=== PATIENT | male | born 1945 | race Caucasian/White ===

== ENCOUNTER 2018-01-23 11:50 | Day surgery (SDC) | payer MEDICARE, BC ==
[~2018-01-23] VITALS: Ht 170.2 cm; Wt 77.1 kg
[~2018-01-23 11:50] MED LIST: COZAAR50 MG PO; FLOMAX0.4 MG PO; LIVALO4 MG PO; MOBIC7.5 MG PO; NORVASC10 MG PO; OMEPRAZOLE20 M1 PO; STOOL SOFTENER100 M1 PO; TYLENOL W/CODEI1 TAB PO; ZOLOFT100 MG PO
[2018-01-23 12:12] LABS: BASOPHILS 0.3 % (0-2); HEMATOCRIT 37.5 % (42.0-54.0); HEMOGLOBIN 13.7 g/dL (13.5-17.5); IMMATURE GRANULOCYTES 0.1 % (0-5); MCH 33.7 pg (26.0-34.0); MCHC 36.5 g/dL (31.0-37.0); MCV 92.4 fL (80.0-100.0); MEAN PLATELET VOLUME 9.3 fL (7.4-10.4); MONOCYTES 8.6 % (2-11); PLATELET COUNT 204 10x3/uL (130-400); RBC 4.06 10x6/uL (4.20-6.10); RDW 12.6 % (11.5-14.5); WBC 7.1 10x3/uL (4.8-10.8)
[2018-01-23 13:48] VITALS: BP 113/76; Ht 170.2 cm; Wt 77.1 kg
[2018-01-24] MEDS ORDERED: NORCO 7.5/325 T1 TA1 PO (12:48)
[2018-01-24] MEDS ORDERED: VIBRAMYCIN 100100 MG PO (12:48)
[2018-03-01] MEDS ORDERED: TYLENOL W/CODEI1 TAB (17:28)
[2018-03-01] MEDS ORDERED: BACTRIM 400-801 TAB PO (17:29)
== END 2018-01-23 16:30 | disposition home or self-care (01) ==
LOC: D.OPS 11:50 → D.PAN 14:00 → D.OPS 14:00 → D.PAN 14:15 → D.OPS 16:30
PROVIDERS: Anesthesiology
DX: T14.8XXA Other injury of unspecified body region, initial encounter (principal); Z53.9 Procedure and treatment not carried out, unspecified reason; Z01.812 Encounter for preprocedural laboratory examination

== ENCOUNTER 2018-01-24 10:36 | Day surgery (SDC) | payer MEDICARE, BC ==
[~2018-01-24] VITALS: Ht 170.2 cm; Wt 77.3 kg
--- NOTE | ~2018-01-24 | OP ---
PATIENT NAME: AKSHAT MARIN MEDICAL RECORD: [id number] :47 LOCATION:[facility] ADMISSION DATE: SURGEON: HENRI VARGHESE DO DATE OF OPERATION: 01/24/2018 PROCEDURE PERFORMED: Right elbow incision, debridement and closure with wound VAC application and Amniox application. PREOPERATIVE DIAGNOSIS: Right elbow wound dehiscence. POSTOPERATIVE DIAGNOSIS: Right elbow wound dehiscence. INDICATIONS: Mr. Marin is a left hand dominant male who fell some weeks ago and sustained a triceps rupture. He was seen by another treating physician and had the triceps repaired. Shortly thereafter, he fell again and the wound opened up. He had I&D'd and closed and then he fell again and it opened up again. He was in packing at that point and asked for my assistance, asked for me to look at it. He had about a 5 x 2 cm opening horizontally back of the upper arm right at the elbow and I informed him, I would try to close it and that he will be in a splint. We also cultured the wound. The patient was understanding the risks and benefits of the procedure and signed the consent. SURGEON: Henri Varghese DO DESCRIPTION OF PROCEDURE: The patient was taken to the operative suite, laid in the left lateral decubitus position with the right arm up. The right arm was prepped and draped in sterile fashion with Betadine to the open wound. After it was prepped and draped, a timeout was performed. Everyone was in agreement of correct side, site, patient, and procedure. The procedure then began using a curette with the granulation tissue that was in the wound was roughened up and then 1500 mL of saline was used in the power saturator to wash out the wound. Prior to this, cultures were taken. Once the wound washed out, the edges of the wound were removed in order to create a bleeding surface at the other edges. The skin was then mobilized also doing an undermining technique. Once this was completed, a 2 x 3 cm sheet of Amniox was placed over the exposed tricep tendon in order to prevent adhesions and to give a good wound healing bed. This was tacked down with 3-0 Monocryl. Then, the arm was extended at the elbow and the wound was closed with 2-0 Prolene in a Donati type stitch and vertical mattress stitches and then in between there, 3-0 Monocryl was used in horizontal mattress stitches to pull the wound together. Then, a Prevena wound VAC was placed on the wound itself and sealed. The arm was then wrapped with Webril and a splint was put on the anterior arm to keep the arm in extension and an Nicho wrap was used over that to hold the splint in place. BLOOD LOSS: Minimal. COMPLICATIONS: None. TRANSINT:[id number] Voice Confirmation ID: [id number] DOCUMENT ID: [id number] OPERATIVE REPORT [id number] AKSHAT MARIN,HENRI Larry DO at 1604 CC: [id number] DICTATION DATE: 01/24/18 1253 FOUNDATION DIRECTOR: 01/24/18 1424 [facility] 01/24/18 [facility] [address] [place] [address]
[2018-01-24 10:41] VITALS: BP 119/71; Ht 170.2 cm; Wt 77.3 kg
[2018-01-24] MEDS ORDERED: VIBRAMYCIN 100100 MG PO (12:48)
[2018-01-24] MEDS ORDERED: NORCO 7.5/325 T1 TA1 PO (12:48)
[2018-03-01] MEDS ORDERED: TYLENOL W/CODEI1 TAB (17:28)
[2018-03-01] MEDS ORDERED: BACTRIM 400-801 TAB PO (17:29)
== END 2018-01-24 15:15 | disposition home or self-care (01) ==
LOC: D.OPS 10:36
DX: T81.32XA Disruption of internal operation (surgical) wound, not elsewhere classified, initial encounter (principal); Z01.812 Encounter for preprocedural laboratory examination

== ENCOUNTER → 2018-01-24 22:00 | Day surgery (SDC) | payer MEDICARE, BC ==
[2018-01-24 10:41] VITALS: BMI 26.7
[~2018-01-24 22:00] MED LIST changes: +BACTRIM 400-801 TAB PO; +NORCO 7.5/325 T1 TA1 PO; +TYLENOL W/CODEI1 TAB; +VIBRAMYCIN 100100 MG PO
== END | disposition home or self-care (01) ==
LOC: D.OPS 08:40
DX: T81.32XA Disruption of internal operation (surgical) wound, not elsewhere classified, initial encounter (principal); Z01.812 Encounter for preprocedural laboratory examination

== ENCOUNTER → 2018-02-14 13:09 | Outpatient (CLI) | payer MEDICARE, BC ==
[2018-01-24 10:41] VITALS: BMI 26.7
== END | disposition home or self-care (01) ==
LOC: D.LABREF 13:09
DX: M25.521 Pain in right elbow (principal)

== ENCOUNTER 2018-03-02 11:43 | Outpatient (CLI) | payer MEDICARE, BC ==
[~2018-03-02] VITALS: Ht 170.2 cm; Wt 78.0 kg
[2018-03-02 12:18] LABS: BASOPHILS 0 % (0-2); EOSINOPHILS 0.2 % (0-7); HEMATOCRIT 38.6 % (42.0-54.0); IMMATURE GRANULOCYTES 0.2 % (0-5); LYMPHOCYTES 16.5 % (15-50); MCH 33.8 pg (26.0-34.0); MCHC 36.3 g/dL (31.0-37.0); MCV 93.2 fL (80.0-100.0); MEAN PLATELET VOLUME 10.1 fL (7.4-10.4); MONOCYTES 6.4 % (2-11); NEUTROPHILS 76.7 % (40-80); PLATELET COUNT 217 10x3/uL (130-400); RBC 4.14 10x6/uL (4.20-6.10); RDW 12.9 % (11.5-14.5); WBC 10.5 10x3/uL (4.8-10.8)
[2018-03-02 12:24] LABS: CARBON DIOXIDE 23.6 mmol/L (21.0-32.0); CREATININE - SERUM 1.3 mg/dL (0.6-1.3); POTASSIUM - SERUM 4.6 mmol/L (3.5-5.1)
[2018-03-02 14:00] VITALS: BP 128/79; Ht 170.2 cm; Wt 78.0 kg
== END 2018-03-02 16:54 | disposition home or self-care (01) ==
LOC: D.OPS 11:43 → EDSTATUS 14:00 → D.OPS 16:54
PROVIDERS: Anesthesiology
DX: T14.8XXA Other injury of unspecified body region, initial encounter (principal); Z01.810 Encounter for preprocedural cardiovascular examination; Z01.811 Encounter for preprocedural respiratory examination; Z01.812 Encounter for preprocedural laboratory examination; Z53.9 Procedure and treatment not carried out, unspecified reason

== ENCOUNTER 2018-03-06 05:25 | Day surgery (SDC) | payer MEDICARE, BC ==
[~2018-03-06] VITALS: Ht 170.2 cm; Wt 78.0 kg
--- NOTE | ~2018-03-06 | OP ---
PATIENT NAME: AKSHAT MARIN MEDICAL RECORD: [id number] :47 LOCATION:D.OPS ADMISSION DATE: SURGEON: FRANCISCO J VARGHESE DO DATE OF OPERATION: 03/06/2018 PROCEDURE PERFORMED: Right elbow incision, debridement with rotational flap closure, Amniox and Prevena application. PREOPERATIVE DIAGNOSIS: Right elbow open wound. POSTOPERATIVE DIAGNOSIS: Right elbow open wound. INDICATIONS: Mr. Marin is a 72-year-old male who had a triceps repair sometime ago, fell and split that open twice from the outside facility and then I did surgery on him to close the wound defect and closed nicely and then approximately 2 weeks after it healed, he develops another wound proximal to that and it opened up. It did not seem to be getting smaller. After watching it for a week or two, and decided to do a rotational flap to get it closed and I&D. He was okay with after knowing the risks and benefits of the procedure including infection, bleeding, damage to nerves and vessels, need for further surgery, and wound VAC application. He consented to the procedure. SURGEON: Francisco J Varghese DO DESCRIPTION OF PROCEDURE: The patient was taken to the operative suite, laid in the left lateral decubitus position with the right arm out. It was prepped and draped with Betadine and then a timeout was performed. Everyone was in agreement with the correct site, side, the patient. The patient received 2 grams Ancef preoperatively. Once he got 2 grams of Ancef and the timeout had been performed, the rotational flap was marked out. A triangular incision was cut around the open defect getting nice bleeding edges on all the edges and then a curvilinear incision was made laterally. This was on the posterior elbow to rotate the flap over. The flap was rotated over. Cultures had been taken as well. Once the flap was rotated over, it was sutured into place with 3-0 nylon and then the Amniox was sutured underneath it with 4-0 Monocryl, this had a nice closure. This was closed with horizontal mattresses and simple interrupted sutures. Then, the Prevena was placed on the wound and suction was holding. The wound was thoroughly irrigated prior to all this. The patient was awakened and taken to recovery in stable condition BLOOD LOSS: Minimal. COMPLICATIONS: None. TRANSINT:[id number] Voice Confirmation ID: [id number] DOCUMENT ID: [id number] FRANCISCO J VARGHESE DO at 1744 CC: [id number] DICTATION DATE: 03/06/18825 LEAD LEVEL DESIGNER: 03/06/18 0853 [facility] 03/06/18 [place] [id number] [place] [id number]
[2018-03-06 06:25] VITALS: BP 115/72; Ht 170.2 cm; Wt 78.0 kg
[2018-03-06] MEDS ORDERED: VIBRAMYCIN 100100 MG PO (07:18)
[2018-03-06] MEDS ORDERED: NORCO 7.5/325 T1 TA1 PO (07:18)
== END 2018-03-06 10:27 | disposition home or self-care (01) ==
LOC: D.OPS 05:25
DX: S51.001A Unspecified open wound of right elbow, initial encounter (principal); Z01.812 Encounter for preprocedural laboratory examination
CPT/HCPCS: 11042; 14020; C5271

== ENCOUNTER → 2018-04-05 12:18 | Outpatient (CLI) | payer MEDICARE, BC ==
[2018-03-06 06:25] VITALS: BMI 27.0
[2018-04-05 13:47] LABS: BASOPHILS 0.3 % (0-2); EOSINOPHILS 1.5 % (0-7); HEMATOCRIT 38.4 % (42.0-54.0); HEMOGLOBIN 13.9 g/dL (13.5-17.5); IMMATURE GRANULOCYTES 0.1 % (0-5); MCH 33.7 pg (26.0-34.0); MCHC 36.2 g/dL (31.0-37.0); MCV 93.2 fL (80.0-100.0); MEAN PLATELET VOLUME 10.2 fL (7.4-10.4); MONOCYTES 9.4 % (2-11); NEUTROPHILS 67.7 % (40-80); PLATELET COUNT 223 10x3/uL (130-400); RBC 4.12 10x6/uL (4.20-6.10); RDW 12.7 % (11.5-14.5); WBC 7.6 10x3/uL (4.8-10.8)
[2018-04-05 14:01] LABS: ALBUMIN 3.9 g/dL (3.4-5.0); ALKALINE PHOSPHATASE 127 U/L (46-116); ALT (SGPT) 24 U/L (10-68); BILIRUBIN - TOTAL 0.62 mg/dL (0.2-1.3); CALC OSMOLALITY 281 mosm/kg (275-300); CALCIUM 8.8 mg/dL (8.5-10.1); CARBON DIOXIDE 24.3 mmol/L (21.0-32.0); CHLORIDE - SERUM 104 mmol/L (98-107); CREATININE - SERUM 0.9 mg/dL (0.6-1.3); GLUCOSE 93 mg/dL (74-106); POTASSIUM - SERUM 4.2 mmol/L (3.5-5.1); PRE-ALBUMIN 23.2 mg/dL (18.0-35.7); PROTEIN - SERUM 7.3 g/dL (6.4-8.2); SODIUM 139 mmol/L (136-145); UREA NITROGEN 23 mg/dL (7-18); eGFR NON AFRICAN AMERICAN 88 mL/min (90-120)
== END | disposition home or self-care (01) ==
LOC: D.LABREF 12:18
PROVIDERS: Orthopaedic Surgery
DX: M25.521 Pain in right elbow (principal)

== ENCOUNTER → 2019-01-24 11:06 | Outpatient (CLI) | payer MEDICARE, BC ==
[2018-03-06 06:25] VITALS: BMI 27.0
[~2019-01-24 11:06] MED LIST changes: +CIPRO500 MG PO; +ELIQUIS2.5 MG PO; +MULTI-DAY VITAM1 TAB PO; +NIACIN500 MG PO; +OMEGA-3100 MG PO; +OXYCODONE HCL5 M1 PO; +VITAMIN D5000 UNIT PO
== END | disposition home or self-care (01) ==
LOC: D.LABREF 11:06
PROVIDERS: ATTEND Orthopaedic Surgery
DX: M17.12 Unilateral primary osteoarthritis, left knee (principal); Z11.8 Encounter for screening for other infectious and parasitic diseases

== ENCOUNTER 2019-01-25 16:26 | Inpatient (IN) | payer MEDICARE, BC ==
[~2019-01-25] VITALS: Ht 170.2 cm; Wt 77.1 kg
[~2019-01-25 16:26] MED LIST changes: -CIPRO500 MG PO; -ELIQUIS2.5 MG PO; -MULTI-DAY VITAM1 TAB PO; -NIACIN500 MG PO; -OMEGA-3100 MG PO; -OXYCODONE HCL5 M1 PO; -VITAMIN D5000 UNIT PO
[2019-01-30] MEDS ORDERED: TYLENOL W/CODEI1 TAB PO (10:37)
[2019-01-30] MEDS ORDERED: NIACIN500 MG PO (10:39)
[2019-01-30] MEDS ORDERED: OMEGA-3100 MG PO (10:40)
[2019-01-30] MEDS ORDERED: MULTI-DAY VITAM1 TAB PO (10:41)
[2019-01-30] MEDS ORDERED: VITAMIN D5000 UNIT PO (10:41)
[2019-01-30 11:11] LABS: BASOPHILS 0.3 % (0-2); EOSINOPHILS 3.8 % (0-7); HEMATOCRIT 38.2 % (42.0-54.0); HEMOGLOBIN 14.4 g/dL (13.5-17.5); LYMPHOCYTES 22.5 % (15-50); MCH 33.9 pg (26.0-34.0); MCHC 37.7 g/dL (31.0-37.0); MCV 89.9 fL (80.0-100.0); MEAN PLATELET VOLUME 9.6 fL (7.4-10.4); MONOCYTES 9.1 % (2-11); NEUTROPHILS 64.3 % (40-80); PLATELET COUNT 197 10x3/uL (130-400); RBC 4.25 10x6/uL (4.20-6.10); RDW 13.1 % (11.5-14.5)
[2019-01-30 11:18] LABS: ANION GAP 10.5 mmol/L (8-16); APTT 29.3 SECONDS (22.8-39.4); CALCIUM 8.8 mg/dL (8.5-10.1); CARBON DIOXIDE 27.6 mmol/L (21.0-32.0); CREATININE - SERUM 1.1 mg/dL (0.6-1.3); INR 1.16 (0.85-1.17); POTASSIUM - SERUM 4.1 mmol/L (3.5-5.1); PROTIME 14.3 SECONDS (11.6-15.0)
[2019-01-31 09:01] LABS: APPEARANCE CLEAR (CLEAR); BILIRUBIN NEGATIVE (NEGATIVE); COLOR YELLOW (YELLOW); GLUCOSE NEGATIVE (NEGATIVE); KETONE NEGATIVE (NEGATIVE); NITRITE NEGATIVE (NEGATIVE); PROTEIN NEGATIVE (NEGATIVE); SPECIFIC GRAVITY 1.015 (1.005-1.020); UROBILINOGEN NORMAL (NORMAL)
[2019-02-05] MEDS ORDERED: FLOMAX0.4 MG PO (07:29)
[2019-02-05 07:52] VITALS: BP 134/83; BMI 25.9
--- NOTE | 2019-02-05 11:21 | NUR ---
PLASMA BLADE SET TO 6/8 BOVIE PAD RIGHT HIP [id number] EXP 06/27/20 PREPPED FROM LEFT THIGH TO TOES CIRCUMFERENTIALLY WITH HIBICLENS AND ACOHOL AND THEN CHLORAPREP
--- NOTE | 2019-02-05 13:05 | NUR ---
DR WELLS AND STUDENT AT BEDSIDE FOR REBLOCK OF FEMORAL COMPONENT
--- NOTE | 2019-02-05 13:46 | NUR ---
PT DENIES NAUSEA
[2019-02-05 13:52] VITALS: BP 108/60
[2019-02-05 16:24] VITALS: BMI 26.7
[2019-02-05 21:37] VITALS: BP 119/70
[2019-02-06 00:49] VITALS: BP 101/68
--- NOTE | 2019-02-06 01:39 | NUR ---
PT RESTING IN BED. EYES CLOSED. NO SIGNS OF DISTRESS. BREATHING EVEN AND UNLABORED. IV SITE RT FA DRESSING CLEAN DRY AND INTACT. NO SIGNS OF INFECTION. SKIN CLEAN DRY AND INTACT. BOWEL SOUNDS ACTIVE. LT KNEE DRESSING CLEAN DRY AND INTACT. SCDS AND SARAH HOSE ON. WILL CONTINUE PLAN OF CARE. CALL LIGHT IN REACH. BED LOWERED AND LOCKED. BED RAILS UPX2.
[2019-02-06 05:16] VITALS: BP 114/68
[2019-02-06 06:49] LABS: HEMATOCRIT 32.5 % (42.0-54.0); HEMOGLOBIN 11.6 g/dL (13.5-17.5); MCHC 35.7 g/dL (31.0-37.0); MCV 92.3 fL (80.0-100.0); RBC 3.52 10x6/uL (4.20-6.10); RDW 13.5 % (11.5-14.5)
[2019-02-06 08:16] VITALS: BP 120/79
[2019-02-06 12:34] VITALS: BP 122/80
[2019-02-06 16:08] VITALS: BP 105/62
[2019-02-06 16:32] LABS: APPEARANCE CLEAR (CLEAR); BILIRUBIN NEGATIVE (NEGATIVE); COLOR YELLOW (YELLOW); GLUCOSE NEGATIVE (NEGATIVE); KETONE NEGATIVE (NEGATIVE); NITRITE NEGATIVE (NEGATIVE); PROTEIN NEGATIVE (NEGATIVE); UROBILINOGEN NORMAL (NORMAL)
[2019-02-06 22:07] VITALS: BP 155/79
--- NOTE | 2019-02-07 00:53 | NUR ---
PT IS ALERT ANDD ORENTED ABLE TO VOICE NEEDS AND WANTS TO STAFF. TEDS AND SCD IN PLACE.O2 AT 3L VIA N/C. IV TO RIGHT FR WITH 1/2 NS AT 50ML/HR. CPM PER ORDERS. CALL LIGHT AND WATER IN REACH BED LOW.
[2019-02-07 05:31] LABS: BASOPHILS 0.1 % (0-2); EOSINOPHILS 1.5 % (0-7); HEMATOCRIT 34.8 % (42.0-54.0); HEMOGLOBIN 12.7 g/dL (13.5-17.5); IMMATURE GRANULOCYTES 0.3 % (0-5); MCH 33.5 pg (26.0-34.0); MCHC 36.5 g/dL (31.0-37.0); MCV 91.8 fL (80.0-100.0); MEAN PLATELET VOLUME 9.9 fL (7.4-10.4); MONOCYTES 11.7 % (2-11); NEUTROPHILS 76.4 % (40-80); PLATELET COUNT 174 10x3/uL (130-400); RBC 3.79 10x6/uL (4.20-6.10); RDW 13.4 % (11.5-14.5)
[2019-02-07 05:45] VITALS: BP 145/84
[2019-02-07 06:09] LABS: ANION GAP 13.4 mmol/L (8-16); CALCIUM 9.1 mg/dL (8.5-10.1); CARBON DIOXIDE 26.3 mmol/L (21.0-32.0); CREATININE - SERUM 1.5 mg/dL (0.6-1.3); POTASSIUM - SERUM 4.7 mmol/L (3.5-5.1)
--- NOTE | 2019-02-07 08:00 | NUR ---
PT RESTING IN BED WITH BIPAP IN PLACE. NO ACUTE DISTRESS NOTED. REPORTS PAIN 4/10 AT THIS TIME. IV TO RIGHT FOREARM WITH 1/2 NS @ 50ML/HR INFUSING VIA PUMP. DRESSING TO LEFT LOWER EXTREMITY C/D/I. DENIES FURTHER NEEDS AT THIS TIME. CL WITHIN REACH. ENCOURAGED TO CALL WITH NEEDS. CONTINUE POC
[2019-02-07 09:39] VITALS: BP 151/86
[2019-02-07 12:56] VITALS: BP 138/78
--- NOTE | 2019-02-07 16:48 | OP ---
PATIENT NAME: AKSHAT MARIN MEDICAL RECORD: [id number] :47 LOCATION:D.MS [id number] ADMISSION DATE:02/05/19 SURGEON: HENRI VARGHESE DO DATE OF OPERATION: 02/05/2019 PROCEDURE PERFORMED: Left total knee arthroplasty. PREOPERATIVE DIAGNOSIS: Left knee osteoarthritis. POSTOPERATIVE DIAGNOSIS: Left knee osteoarthritis. INDICATIONS: Mr. Marin is a 73-year-old male who has had left knee arthritis for quite some time. He did have a tibia fracture sometime in the past. He did have some apex anterior deformity creating worse arthritis in his knee. He has been dealing with this for a long time. He has failed all nonoperative management. He was tired of dealing with it affecting his activities of daily living and was wanting something done surgically. I informed him of the risks including infection, bleeding, damage to nerves and vessels, fracture, need for further surgery, blood clots, and even . He was okay with that and signed the consent. SURGEON: Henri Varghese DO ACCOUNTING MACHINE SERVICER: I was assisted by Tyler Sutherland, advanced nurse practitioner, assisted with retraction and closure. DESCRIPTION OF PROCEDURE: He was taken to the operative suite and laid in supine position, given a general anesthetic and LMA was placed. He was given 2 grams of Ancef and 80 mg of gentamicin. The left lower extremity was then prepped and draped in sterile fashion. Timeout was performed, everyone was in agreement as to the correct side, site, patient and procedure. The incision was then marked out over the anterior knee and then covered in Ioban. Then, the incision was made with a 10 blade scalpel. Careful dissection was made down to the capsule. Medial parapatellar approach was made and any bleeding was coagulated with Aquamantys. Tourniquet was not used. The fat pad was partially removed and the patella was then milled down. The femoral canal was then entered and distal femur was cut. The tibia was then exposed and cut. The proximal tibia then removed and the knee was brought into extension. The menisci were removed from the medial and lateral aspects and then an extension block was put in. The extension block fit well. The pins were then pulled from the tibia from the cutting block. The knee was flexed up. The femur was measured to be a 67.5. The 4-in-1 cutting block was then put on, measured and did not notch and this was cut. The PS box was then cut out on the femur and the lugholes were drilled. The trial was then put on and the tibia was floated in with the poly. Rotation was then marked. The drill was used to drill holes for the patella through a guide. Then, the femur was removed, trial, as well as the tibia and poly. The tibia was then exposed and measured to be 75. We did a 75-80 mm stem on it. This was drilled and punched and cement was applied to the tibia and the implant and impacted into place. Once it was impacted in place, excess cement was removed. The femur was then impacted into place and a 10 poly was put in between them, brought to extension. The patella was then cemented in as well. The squeezer was then used and held the poly on while the cement hardened. Excess cement was removed from that and the tibia. Then, once this was drying, the knee was thoroughly irrigated with 3 liters of saline. The 12 poly fit better. We decided to go with a 12 poly. This was then inserted and OPERATIVE REPORT [id number] AKSHAT MARIN locked into place with a locking pin and ranged and there was good stability in extension and flexion. The vancomycin, tobramycin powder was then placed as well as Surgicel powder and then the knee was closed with #2 Ethibond in [id number] fashion. The capsule and then the skin with 2-0 Vicryl in inverted interrupted fashion and a ZipLine placed on the knee. Adaptic, 4 x 4s, ABD, Webril, Nicho wrap, SARAH hose stockinette was placed up to the knee. The patient was awakened and taken to recovery in stable condition. Blood loss was approximately 200 mL. Complications none. TRANSINT:[id number] Voice Confirmation ID: [id number] DOCUMENT ID: [id number] 02/07/2019 Edited for rosio Cody. HENRI VARGHESE DO at 1648 CC: [id number] DICTATION DATE: 02/05/19 1220 DISPLAY MECHANIC: 02/05/19 1239 [facility] [place] [address]
--- NOTE | 2019-02-07 16:57 | MORECARE ---
CASE MANAGEMENT DISCHARGE SUMMARY PATIENT: AKSHAT MARIN UNIT: [id number] ADM DATE: 02/05/19 AGE: 73 : 46 SEX: M ROOM/BED: D.2210 AUTHOR: MEGHA GARCIA PHYSICIAN: REFERRING PHYSICIAN: FRNACISCO J VARGHESE DO DATE OF SERVICE: 02/07/19 Discharge Plan Patient Name: AKSHAT MARIN [facility] [facility] 1945 Planned Disposition: Anticipated Discharge Date: Discharge Date: Expected LOS: Initial Reviewer: [email or web address] Initial Review Date: 02/05/2019 Generated: 02/07/19 5:57 pm Comments DCP- Discharge Planning Updated by [email or web address]: Ave Arriaza on 02/07/19 3:[address] Attempted to see patient and he was in pain and asked me to come back tomorrow Patient Name: AKSHAT MARIN Page [id number] at 1657 All edits/amendments must be made on the electronic document DICTATION DATE: 02/07/191656 CRIPPLE CUTTER: MANJU 02/07/191656 RPT#: [id number] DC DATE: STATUS: ADM IN [facility] [address] [place] [address] END OF REPORT
[2019-02-07 17:23] VITALS: BP 155/90
[2019-02-07 21:10] VITALS: BP 158/90
[2019-02-08 01:14] VITALS: BP 164/84
--- NOTE | 2019-02-08 04:46 | NUR ---
PATIENT OFFERED ENEMA AT START OF SHIFT WHEN HE WAS GIVEN CHRONULAC, AMITIZA AND SENOKOT-S . HE WANTED TO WATE AND SEE IF THESE WORKED BEFORE HE TOOK IT AT THIS TIME HE HAS HAD A VERY SMALL LOOS STOOL AND A MED SOFT STOOL AND DOES NOT WISH TO DO THE ENEMA.
[2019-02-08 05:38] VITALS: BP 121/79
[2019-02-08 06:04] LABS: BASOPHILS 0.1 % (0-2); EOSINOPHILS 0.2 % (0-7); HEMATOCRIT 34.4 % (42.0-54.0); HEMOGLOBIN 12.8 g/dL (13.5-17.5); IMMATURE GRANULOCYTES 0.4 % (0-5); LYMPHOCYTES 7.9 % (15-50); MCHC 37.2 g/dL (31.0-37.0); MCV 91.2 fL (80.0-100.0); MONOCYTES 11.2 % (2-11); NEUTROPHILS 80.2 % (40-80); PLATELET COUNT 203 10x3/uL (130-400); RBC 3.77 10x6/uL (4.20-6.10); RDW 13.2 % (11.5-14.5)
--- NOTE | 2019-02-08 06:11 | NUR ---
REFUSED CPM THIS AM DUE TO HAVING TO GET UP TO BSC. AFRAID WILL NOT MAKE IT TO BSC IN TIME.
[2019-02-08 06:31] LABS: ANION GAP 17.1 mmol/L (8-16); CARBON DIOXIDE 22.7 mmol/L (21.0-32.0); CREATININE - SERUM 1.4 mg/dL (0.6-1.3)
[2019-02-08 06:33] LABS: POTASSIUM - SERUM 3.8 mmol/L (3.5-5.1)
[2019-02-08 09:40] VITALS: BP 105/68
[2019-02-08 09:42] VITALS: Ht 170.2 cm; Wt 77.1 kg
--- NOTE | 2019-02-08 10:05 | NUR ---
Rehab Prescreening Consult recieved and the chart has been reviewed. He meets criteria and can be accepted today if the physician agrees. Discussed with the CM Jia Arriaza RN. Sharifa Pena RN Clinical Liaison, Rehab
--- NOTE | 2019-02-08 11:09 | NUR ---
PATIENT BACK IN BED. CO PAIN 6 OUT OF 10. STOMACH IS HURTING. CL IN REACH. NO FURTHER NEEDS AT THIS TIME.
[2019-02-08 13:03] VITALS: BP 103/61
--- NOTE | 2019-02-08 13:50 | NUR ---
PATIENT SITTING IN THE CHAIR. CL IN REACH AND BEDSIDE TABLE IN REACH. NO FURTHER NEEDS AT THIS TIME.
--- NOTE | 2019-02-08 16:09 | MORECARE ---
CASE MANAGEMENT DISCHARGE SUMMARY PATIENT: AKSHAT MARIN UNIT: [id number] ADM DATE: 02/05/19 AGE: 73 : 46 SEX: M ROOM/BED: D.2210 AUTHOR: MEGHA GARCIA PHYSICIAN: REFERRING PHYSICIAN: FRANCISCO J VARGHESE DO DATE OF SERVICE: 02/08/19 Discharge Plan Patient Name: AKSHAT MARIN [facility] [facility] 1945 Planned Disposition: Inpatient Rehab Anticipated Discharge Date: Discharge Date: Expected LOS: Initial Reviewer: [email or web address] Initial Review Date: 02/05/2019 Generated: 02/08/19 5:09 pm DCP- Discharge Planning Updated by [email or web address]: Ave Arriaza on 02/07/19 3:[address] Attempted to see patient and he was in pain and asked me to come back tomorrow DCPIA - Discharge Planning Initial Assessment Updated by [email or web address]: Ave Arriaza on 02/08/19 4:05 pm * Is the patient Alert and Oriented? Yes * How many steps to enter\exit or inside your home? * PCP [facility] * Pharmacy [facility] * Preadmission Environment Home with Family * ADLs Independent * Equipment Bedside Commode Cane CPAP Rolling Walker * List name and contact numbers for known caregivers / representatives who currently or will assist patient after discharge: NAEEM () [phone] * Verbal permission to speak to the caregivers and representatives has been obtained from the patient. N/A * Community resources currently utilized None * Additional services required to return to the preadmission environment? Yes * Can the patient safely return to the preadmission environment? No * Has this patient been hospitalized within the prior 30 days at any hospital? No Last DP export: 02/07/19 3:57 p Patient Name: AKSHAT MARIN Page [id number] at 1609 All edits/amendments must be made on the electronic document DICTATION DATE: 02/08/19 160 WOUND CARE PHYSICIAN: MANJU 02/08/19 1609 RPT#: [id number] DC DATE: STATUS: ADM IN [facility] [address] [place] [address] END OF REPORT
--- NOTE | 2019-02-08 16:20 | MORECARE ---
CASE MANAGEMENT DISCHARGE SUMMARY PATIENT: AKSHAT MARIN UNIT: [id number] ADM DATE: 02/05/19 AGE: 73 : 46 SEX: M ROOM/BED: D.2210 AUTHOR: MEGHA GARCIA PHYSICIAN: REFERRING PHYSICIAN: FRANCISCO J VARGHESE DO DATE OF SERVICE: 02/08/19 Discharge Plan Patient Name: AKSHAT MARIN Facility: [facility]:[place] : 1945 Planned Disposition: Inpatient Rehab Anticipated Discharge Date: Discharge Date: Expected LOS: Initial Reviewer: [email or web address] Initial Review Date: 02/05/2019 Generated: 02/08/19 5:20 pm Comments DCP- Discharge Planning Updated by [email or web address]: Ave Arriaza on 02/08/19 3:[address] Patient Name: AKSHAT MARIN Admission Status: Elective Accout number: [id number] Admission Date: 02-05-2019 : 1945 Admission Diagnosis:UNILATERAL PRIMARY OSTEOARTHRITIS, LEFT KNEE Attending: FRANCISCO J VARGHESE Current LOS: 3 Anticipated DC Date: Planned Disposition: Inpatient Rehab Primary Insurance: MEDICARE A & B Discharge Planning Comments: CM met with patient to complete initial dc planning assessment. CM educated patient on the CM role and verbal consent given by patient to complete assessment. Patient lives at home with his where he was independent with his . At discharge patient would like to go to inpatient rehab at [facility] and feels this is a safe discharge. Patient stated that he has a walker, cpap, cane and BSC. Patient has been approved for inpatient rehab when he is stable for DC. Alee is the person acquisition lead this weekend for inpatient rehab. IMM served and explained. Best services her cpap. Patient denied known discharge needs at this time. CM will continue to follow and will assist as needed with dc plans/needs. Finnish Rubber: Ave Arriaza DCP- Discharge Planning Updated by [email or web address]: Ave Arriaza on 02/07/19 3:[address] Attempted to see patient and he was in pain and asked me to come back tomorrow DCPIA - Discharge Planning Initial Assessment Updated by [email or web address]: Ave Arriaza on 02/08/19 4:05 pm * Is the patient Alert and Oriented? Yes * How many steps to enter\exit or inside your home? * PCP [facility] * Pharmacy [facility] * Preadmission Environment Home with Family * ADLs Independent * Equipment Bedside Commode Cane CPAP Rolling Walker * List name and contact numbers for known caregivers / representatives who currently or will assist patient after discharge: NAEEM () [phone] * Verbal permission to speak to the caregivers and representatives has been obtained from the patient. N/A * Community resources currently utilized None * Additional services required to return to the preadmission environment? Yes * Can the patient safely return to the preadmission environment? No * Has this patient been hospitalized within the prior 30 days at any hospital? No Last DP export: 02/08/19 3:09 p Patient Name: AKSHAT MARIN Page [id number] at 1620 All edits/amendments must be made on the electronic document DICTATION DATE: 02/08/191619 STRUCTURES TECHNICIAN: MANJU 02/08/191619 RPT#: [id number] DC DATE: STATUS: ADM IN [facility] [address] [place] [address] END OF REPORT
[2019-02-08 16:54] VITALS: BP 108/64
[2019-02-08 20:26] VITALS: BP 116/48
[2019-02-09 00:48] VITALS: BP 126/42
[2019-02-09 05:08] LABS: BASOPHILS 0.1 % (0-2); HEMATOCRIT 30.3 % (42.0-54.0); HEMOGLOBIN 10.9 g/dL (13.5-17.5); IMMATURE GRANULOCYTES 0.2 % (0-5); LYMPHOCYTES 11.3 % (15-50); MCH 33.1 pg (26.0-34.0); MCV 92.1 fL (80.0-100.0); MEAN PLATELET VOLUME 10.1 fL (7.4-10.4); MONOCYTES 9.5 % (2-11); NEUTROPHILS 76.9 % (40-80); PLATELET COUNT 180 10x3/uL (130-400); RBC 3.29 10x6/uL (4.20-6.10); RDW 12.9 % (11.5-14.5); WBC 13.2 10x3/uL (4.8-10.8)
[2019-02-09 05:17] VITALS: BP 94/48
[2019-02-09 05:20] LABS: ANION GAP 10.6 mmol/L (8-16); CREATININE - SERUM 1.5 mg/dL (0.6-1.3); POTASSIUM - SERUM 4.2 mmol/L (3.5-5.1)
[2019-02-09 05:21] LABS: CARBON DIOXIDE 29.6 mmol/L (21.0-32.0)
[2019-02-09 08:08] VITALS: BP 109/67
--- NOTE | 2019-02-09 09:30 | NUR ---
PT ALERT X 4. BREATH SOUNDS CLEAR BILAT. PT REPORTING SEVERE HEARTBURN, MEDICATED PER ORDERS, WILL MONITOR. IV TO LEFT FOREARM, PATENT, DRESSING CDI. DRESSING TO LEFT KNEE CDI, SARAH HOSE IN PLACE. PT TAKEN OFF CPM. SCD TO RIGHT LEG. PT REPORTING PAIN OF 7/10, WILL MONITOR. BED LOW, CALL LIGHT IN REACH. NO OTHER NEEDS AT THIS TIME. BLADDER SCAN DONE, 148 ML.
[2019-02-09 12:24] VITALS: BP 125/60
[2019-02-09 17:24] VITALS: BP 118/64
[2019-02-09 20:58] VITALS: BP 121/63
--- NOTE | 2019-02-10 00:09 | NUR ---
PT C/O LEFT KNEE PAIN /. GAVE DILAUDID 1 MG IV PUSH. ASSISTED PT TO REPOSITION. NO OTHER NEEDS. WILL CONTINUE TO MONITOR.
[2019-02-10 00:48] VITALS: BP 120/69
[2019-02-10 04:43] LABS: BASOPHILS 0.2 % (0-2); EOSINOPHILS 2.7 % (0-7); HEMATOCRIT 29.1 % (42.0-54.0); HEMOGLOBIN 10.6 g/dL (13.5-17.5); IMMATURE GRANULOCYTES 0.3 % (0-5); LYMPHOCYTES 13.5 % (15-50); MCH 33.1 pg (26.0-34.0); MCHC 36.4 g/dL (31.0-37.0); MCV 90.9 fL (80.0-100.0); MEAN PLATELET VOLUME 9.7 fL (7.4-10.4); MONOCYTES 10.5 % (2-11); NEUTROPHILS 72.8 % (40-80); PLATELET COUNT 197 10x3/uL (130-400); RDW 12.8 % (11.5-14.5)
[2019-02-10 04:58] LABS: CALCIUM 8.7 mg/dL (8.5-10.1); CARBON DIOXIDE 27.1 mmol/L (21.0-32.0); CREATININE - SERUM 1.2 mg/dL (0.6-1.3); POTASSIUM - SERUM 4.1 mmol/L (3.5-5.1)
[2019-02-10 05:24] VITALS: BP 119/68
[2019-02-10] MEDS ORDERED: ELIQUIS2.5 MG PO (08:03)
[2019-02-10] MEDS ORDERED: OXYCODONE HCL5 M1 PO (08:03)
[2019-02-10] MEDS ORDERED: CIPRO500 MG PO (08:04)
[2019-02-10 08:34] VITALS: BP 118/67
--- NOTE | 2019-02-10 08:53 | MORECARE ---
CASE MANAGEMENT DISCHARGE SUMMARY PATIENT: AKSHAT MARIN UNIT: [id number] ADM DATE: 02/05/19 AGE: 73 : 46 SEX: M ROOM/BED: D.2210 AUTHOR: MEGHA GARCIA PHYSICIAN: REFERRING PHYSICIAN: FRANCISCO J VARGHESE DO DATE OF SERVICE: 02/10/19 Discharge Plan Patient Name: AKSHAT MARIN Facility: [facility]:[place] : 1945 Planned Disposition: Inpatient Rehab Anticipated Discharge Date: Discharge Date: Expected LOS: Initial Reviewer: [email or web address] Initial Review Date: 02/05/2019 Generated: 02/10/19 9:53 am Comments DCP- Discharge Planning Updated by [email or web address]: Ave Arriaza on 02/08/19 3:[address] Patient Name: AKSHAT MARIN Admission Status: Elective Accout number: [id number] Admission Date: 02-05-2019 : 1945 Admission Diagnosis:UNILATERAL PRIMARY OSTEOARTHRITIS, LEFT KNEE Attending: FRANCISCO J VARGHESE Current LOS: 3 Anticipated DC Date: Planned Disposition: Inpatient Rehab Primary Insurance: MEDICARE A & B Discharge Planning Comments: CM met with patient to complete initial dc planning assessment. CM educated patient on the CM role and verbal consent given by patient to complete assessment. Patient lives at home with his where he was independent with his . At discharge patient would like to go to inpatient rehab at [facility] and feels this is a safe discharge. Patient stated that he has a walker, cpap, cane and BSC. Patient has been approved for inpatient rehab when he is stable for DC. Alee is the person honing machine operator semiautomatic this weekend for inpatient rehab. IMM served and explained. Best services her cpap. Patient denied known discharge needs at this time. CM will continue to follow and will assist as needed with dc plans/needs. Biomedical Service Engineer: Ave Arriaza DCP- Discharge Planning Updated by [email or web address]: Ave Arriaza on 02/07/19 3:[address] Attempted to see patient and he was in pain and asked me to come back tomorrow DCPIA - Discharge Planning Initial Assessment Updated by [email or web address]: Ave Arriaza on 02/08/19 4:05 pm * Is the patient Alert and Oriented? Yes * How many steps to enter\exit or inside your home? * PCP [facility] * Pharmacy [facility] * Preadmission Environment Home with Family * ADLs Independent * Equipment Bedside Commode Cane CPAP Rolling Walker * List name and contact numbers for known caregivers / representatives who currently or will assist patient after discharge: NAEEM () [phone] * Verbal permission to speak to the caregivers and representatives has been obtained from the patient. N/A * Community resources currently utilized None * Additional services required to return to the preadmission environment? Yes * Can the patient safely return to the preadmission environment? No * Has this patient been hospitalized within the prior 30 days at any hospital? No External Providers External Provider: [facility] Next Contact Date: Service Request Date: Service Type: Resolution: Reviewer: Comments: Coverage Notice Reviewer: [email or web address] Thuan Arriaza Notice Issued Date-Time: 02/08/2019 15:00 Notice Type: IM Discharge Notice Notice Delivered To: Patient Relationship to Patient: Banana Expert Name: Delivery Method: HAND - Hand Delivered Briana Days: Prior Verbal Notification: Recipient Understood Notice: Yes Recipient Signature: Yes Med Rec Note Co-signed by Attending: Coverage Notice Comment: Reviewer: [email or web address] Thuan Arriaza Notice Issued Date-Time: 02/08/2019 15:00 Notice Type: Patient Choice Letter Notice Delivered To: Patient Relationship to Patient: Banana Expert Name: Delivery Method: HAND - Hand Delivered Briana Days: Prior Verbal Notification: Recipient Understood Notice: Yes Recipient Signature: Yes Med Rec Note Co-signed by Attending: Coverage Notice Comment: Last DP export: 02/08/19 3:20 p Patient Name: AKSHAT MARIN Page [phone] at 0853 All edits/amendments must be made on the electronic document DICTATION DATE: 02/10/19852 TRACER LATHE SET UP OPERATOR: MANJU 02/10/19852 RPT#: [id number] DC DATE: STATUS: ADM IN [facility] [address] [place] [address] END OF REPORT
--- NOTE | 2019-02-10 09:12 | MORECARE ---
CASE MANAGEMENT DISCHARGE SUMMARY PATIENT: AKSHAT MARIN UNIT: [id number] ADM DATE: 02/05/19 AGE: 73 : 46 SEX: M ROOM/BED: D.2210 AUTHOR: MEGHA GARCIA PHYSICIAN: REFERRING PHYSICIAN: FRANCISCO J VARGHESE DO DATE OF SERVICE: 02/10/19 Discharge Plan Patient Name: AKSHAT MARIN Facility: [facility]:[place] : 1945 Planned Disposition: Inpatient Rehab Anticipated Discharge Date: Discharge Date: Expected LOS: Initial Reviewer: [email or web address] Initial Review Date: 02/05/2019 Generated: 02/10/19 10:11 am Comments DCP- Discharge Planning Updated by [id number]: Meredith Renee on 02/10/19 8:[address] Patient Name: AKSHAT MARIN Admission Status: Elective Accout number: [id number] Admission Date: 02-05-2019 : 1945 Admission Diagnosis:UNILATERAL PRIMARY OSTEOARTHRITIS, LEFT KNEE Attending: FRANCISCO J VARGHESE Current LOS: 5 Anticipated DC Date: Planned Disposition: Inpatient Rehab Primary Insurance: MEDICARE A & B Discharge Planning Comments: PATIENT DECIDED HE WANTED HH WITH [facility]ADO, HOLDEN SIGNED. CM SPOKE WITH [facility] AND THEY WILL SEE HIM TOMORROW. SPOKE WITH LIZ AT [facility] AND WE ARE TO CALL HIM WHEN HE'S DISCHARGED AND THEY WILL DELIVER THE CPM. Interactive Designer: Meredith Renee DCP- Discharge Planning Updated by [id number]: Ave Arriaza on 02/08/19 3:[address] Patient Name: AKSHAT MARIN Admission Status: Elective Accout number: [id number] Admission Date: 02-05-2019 : 1945 Admission Diagnosis:UNILATERAL PRIMARY OSTEOARTHRITIS, LEFT KNEE Attending: FRANCISCO J VARGHESE Current LOS: 3 Anticipated DC Date: Planned Disposition: Inpatient Rehab Primary Insurance: MEDICARE A & B Discharge Planning Comments: CM met with patient to complete initial dc planning assessment. CM educated patient on the CM role and verbal consent given by patient to complete assessment. Patient lives at home with his where he was independent with his . At discharge patient would like to go to inpatient rehab at [facility] and feels this is a safe discharge. Patient stated that he has a walker, cpap, cane and BSC. Patient has been approved for inpatient rehab when he is stable for DC. Alee is the person oracle application consultant this weekend for inpatient rehab. IMM served and explained. [facility] services her cpap. Patient denied known discharge needs at this time. CM will continue to follow and will assist as needed with dc plans/needs. Interactive Designer: Ave Arriaza DCP- Discharge Planning Updated by [id number]: Ave Arriaza on 02/07/19 3:[address] Attempted to see patient and he was in pain and asked me to come back tomorrow DCPIA - Discharge Planning Initial Assessment Updated by [email or web address]: Ave Arriaza on 02/08/19 4:05 pm * Is the patient Alert and Oriented? Yes * How many steps to enter\exit or inside your home? * PCP [facility] * Pharmacy [facility] * Preadmission Environment Home with Family * ADLs Independent * Equipment Bedside Commode Cane CPAP Rolling Walker * List name and contact numbers for known caregivers / representatives who currently or will assist patient after discharge: NAEEM () [phone] * Verbal permission to speak to the caregivers and representatives has been obtained from the patient. N/A * Community resources currently utilized None * Additional services required to return to the preadmission environment? Yes * Can the patient safely return to the preadmission environment? No * Has this patient been hospitalized within the prior 30 days at any hospital? No Coverage Notice Reviewer: [id number] Thuan Arriaza Notice Issued Date-Time: 02/08/2019 15:00 Notice Type: IM Discharge Notice Notice Delivered To: Patient Relationship to Patient: Supplemental Nurse Name: Delivery Method: HAND - Hand Delivered Briana Days: Prior Verbal Notification: Recipient Understood Notice: Yes Recipient Signature: Yes Med Rec Note Co-signed by Attending: Coverage Notice Comment: Reviewer: [id number] - Ave Arriaza Notice Issued Date-Time: 02/08/2019 15:00 Notice Type: Patient Choice Letter Notice Delivered To: Patient Relationship to Patient: Supplemental Nurse Name: Delivery Method: HAND - Hand Delivered Briana Days: Prior Verbal Notification: Recipient Understood Notice: Yes Recipient Signature: Yes Med Rec Note Co-signed by Attending: Coverage Notice Comment: Reviewer: [id number] Thuan Renee Notice Issued Date-Time: 02/10/2019 9:07 Notice Type: Patient Choice Letter Notice Delivered To: Patient Relationship to Patient: Self Supplemental Nurse Name: Delivery Method: PHONE - Phone Briana Days: Prior Verbal Notification: Recipient Understood Notice: Yes Recipient Signature: Med Rec Note Co-signed by Attending: Coverage Notice Comment: CATHY LAZAR. Last DP export: 02/10/19 7:53 am Patient Name: AKSHAT MARIN Page [id number] at 0912 All edits/amendments must be made on the electronic document DICTATION DATE: 02/10/19910 [facility] ATTENDANT: MANJU 02/10/19910 RPT#: [id number] DC DATE: STATUS: ADM IN [facility] [address] [place] [address] END OF REPORT
--- NOTE | 2019-02-10 09:18 | MORECARE ---
CASE MANAGEMENT DISCHARGE SUMMARY PATIENT: AKSHAT MARIN UNIT: [id number] ADM DATE: 02/05/19 AGE: 73 : 46 SEX: M ROOM/BED: D.2210 AUTHOR: MEGHA GARCIA PHYSICIAN: REFERRING PHYSICIAN: FRANCISCO J VARGHESE DO DATE OF SERVICE: 02/10/19 Discharge Plan Patient Name: AKSHAT MARIN Facility: [facility]:[place] : 1945 Planned Disposition: Home Health Service Anticipated Discharge Date: Discharge Date: Expected LOS: Initial Reviewer: [id number] Initial Review Date: 02/05/2019 Generated: 02/10/19 10:18 am Comments DCP- Discharge Planning Updated by [id number]: Meredith Renee on 02/10/19 8:[address] Patient Name: AKSHAT MARIN Admission Status: Elective Accout number: [id number] Admission Date: 02-05-2019 : 1945 Admission Diagnosis:UNILATERAL PRIMARY OSTEOARTHRITIS, LEFT KNEE Attending: FRANCISCO J VARGHESE Current LOS: 5 Anticipated DC Date: Planned Disposition: Inpatient Rehab Primary Insurance: MEDICARE A & B Discharge Planning Comments: PATIENT DECIDED HE WANTED HH WITH [facility]ADO, HOLDEN SIGNED. CM SPOKE WITH [facility] AND THEY WILL SEE HIM TOMORROW. SPOKE WITH LIZ AT [facility] AND WE ARE TO CALL HIM WHEN HE'S DISCHARGED AND THEY WILL DELIVER THE CPM. Weight Reducing Technician: Meredith Renee DCP- Discharge Planning Updated by [id number]: Ave Ariraza on 02/08/19 3:[address] Patient Name: AKSHAT MARIN Admission Status: Elective Accout number: [id number] Admission Date: 02-05-2019 : 1945 Admission Diagnosis:UNILATERAL PRIMARY OSTEOARTHRITIS, LEFT KNEE Attending: FRANCISCO J VARGHESE Current LOS: 3 Anticipated DC Date: Planned Disposition: Inpatient Rehab Primary Insurance: MEDICARE A & B Discharge Planning Comments: CM met with patient to complete initial dc planning assessment. CM educated patient on the CM role and verbal consent given by patient to complete assessment. Patient lives at home with his where he was independent with his . At discharge patient would like to go to inpatient rehab at [facility] and feels this is a safe discharge. Patient stated that he has a walker, cpap, cane and BSC. Patient has been approved for inpatient rehab when he is stable for DC. Alee is the person retail sales professional this weekend for inpatient rehab. IMM served and explained. [facility] services her cpap. Patient denied known discharge needs at this time. CM will continue to follow and will assist as needed with dc plans/needs. Weight Reducing Technician: Ave Arriaza DCP- Discharge Planning Updated by [email or web address]: Ave Arriaza on 02/07/19 3:[address] Attempted to see patient and he was in pain and asked me to come back tomorrow DCPIA - Discharge Planning Initial Assessment Updated by [email or web address]: Ave Arriaza on 02/08/19 4:05 pm * Is the patient Alert and Oriented? Yes * How many steps to enter\exit or inside your home? * PCP [facility] * Pharmacy [facility] * Preadmission Environment Home with Family * ADLs Independent * Equipment Bedside Commode Cane CPAP Rolling Walker * List name and contact numbers for known caregivers / representatives who currently or will assist patient after discharge: NAEEM () [phone] * Verbal permission to speak to the caregivers and representatives has been obtained from the patient. N/A * Community resources currently utilized None * Additional services required to return to the preadmission environment? Yes * Can the patient safely return to the preadmission environment? No * Has this patient been hospitalized within the prior 30 days at any hospital? No Coverage Notice Reviewer: [email or web address] Thuan Arriaza Notice Issued Date-Time: 02/08/2019 15:00 Notice Type: IM Discharge Notice Notice Delivered To: Patient Relationship to Patient: Fur Sorter Name: Delivery Method: HAND - Hand Delivered Briana Days: Prior Verbal Notification: Recipient Understood Notice: Yes Recipient Signature: Yes Med Rec Note Co-signed by Attending: Coverage Notice Comment: Reviewer: [id number] - Ave Arriaza Notice Issued Date-Time: 02/08/2019 15:00 Notice Type: Patient Choice Letter Notice Delivered To: Patient Relationship to Patient: Fur Sorter Name: Delivery Method: HAND - Hand Delivered Briana Days: Prior Verbal Notification: Recipient Understood Notice: Yes Recipient Signature: Yes Med Rec Note Co-signed by Attending: Coverage Notice Comment: Reviewer: [id number] Thuan Renee Notice Issued Date-Time: 02/10/2019 9:07 Notice Type: Patient Choice Letter Notice Delivered To: Patient Relationship to Patient: Self Fur Sorter Name: Delivery Method: PHONE - Phone Briana Days: Prior Verbal Notification: Recipient Understood Notice: Yes Recipient Signature: Med Rec Note Co-signed by Attending: Coverage Notice Comment: CATHY LAZAR. Last DP export: 02/10/19 8:12 am Patient Name: AKSHAT MARIN Page [phone] at 0918 All edits/amendments must be made on the electronic document DICTATION DATE: 02/10/19917 MANAGER LEAN: MANJU 02/10/19917 RPT#: [id number] DC DATE: STATUS: ADM IN [facility] [address] [place] [address] END OF REPORT
--- NOTE | 2019-02-10 10:42 | NUR ---
PT ALERT X 4. BREATH SOUNDS CLEAR BILAT. IV TO LEFT FOREARM, SALINE LOCKED. PT REPORTING PAIN OF 5/10, WILL MONITOR. SCD TO RIGHT LEG. DRESSING TO LEFT LEG CDI. BED LOW, CALL LIGHT IN REACH. NO OTHER NEEDS AT THIS TIME.
--- NOTE | 2019-02-12 12:58 | MORECARE ---
CASE MANAGEMENT DISCHARGE SUMMARY PATIENT: AKSHAT MARIN UNIT: [id number] ADM DATE: 02/05/19 AGE: 73 : 46 SEX: M ROOM/BED: D.2210 AUTHOR: MEGHA GARCIA PHYSICIAN: REFERRING PHYSICIAN: FRANCISCO J VARGHESE DO DATE OF SERVICE: 02/12/19 Discharge Plan Patient Name: AKSHAT MARIN Facility: [facility]:[place] : 1945 Planned Disposition: Home Health Service Anticipated Discharge Date: Discharge Date: 02/10/2019 Expected LOS: 0 Initial Reviewer: [id number] Initial Review Date: 02/05/2019 Generated: 02/12/19 1:58 pm Comments DCP- Discharge Planning Updated by [id number]: Meredith Renee on 02/10/19 8:[address] Patient Name: AKSHAT MARIN Admission Status: Elective Accout number: [id number] Admission Date: 02-05-2019 : 1945 Admission Diagnosis:UNILATERAL PRIMARY OSTEOARTHRITIS, LEFT KNEE Attending: FRANCISCO J VARGHESE Current LOS: 5 Anticipated DC Date: Planned Disposition: Inpatient Rehab Primary Insurance: MEDICARE A & B Discharge Planning Comments: PATIENT DECIDED HE WANTED HH WITH [facility]O, HOLDEN SIGNED. CM SPOKE WITH [facility] AND THEY WILL SEE HIM TOMORROW. SPOKE WITH LIZ AT [facility] AND WE ARE TO CALL HIM WHEN HE'S DISCHARGED AND THEY WILL DELIVER THE CPM. Radio Interference Supervisor: Meredith Renee DCP- Discharge Planning Updated by [id number]: Ave Arriaza on 02/08/19 3:[address] Patient Name: AKSHAT MARIN Admission Status: Elective Accout number: [id number] Admission Date: 02-05-2019 : 1945 Admission Diagnosis:UNILATERAL PRIMARY OSTEOARTHRITIS, LEFT KNEE Attending: FRANCISCO J VARGHESE Current LOS: 3 Anticipated DC Date: Planned Disposition: Inpatient Rehab Primary Insurance: MEDICARE A & B Discharge Planning Comments: CM met with patient to complete initial dc planning assessment. CM educated patient on the CM role and verbal consent given by patient to complete assessment. Patient lives at home with his where he was independent with his . At discharge patient would like to go to inpatient rehab at [facility] and feels this is a safe discharge. Patient stated that he has a walker, cpap, cane and BSC. Patient has been approved for inpatient rehab when he is stable for DC. Alee is the person on site nurse this weekend for inpatient rehab. IMM served and explained. Brittanyjoliejamin services her cpap. Patient denied known discharge needs at this time. CM will continue to follow and will assist as needed with dc plans/needs. Radio Interference Supervisor: Ave Arriaza DCP- Discharge Planning Updated by [id number]: Ave Arriaza on 02/07/19 3:[address] Attempted to see patient and he was in pain and asked me to come back tomorrow DCPIA - Discharge Planning Initial Assessment Updated by [email or web address]: Ave Arriaza on 02/08/19 4:05 pm * Is the patient Alert and Oriented? Yes * How many steps to enter\exit or inside your home? * PCP [facility] * Pharmacy [facility] * Preadmission Environment Home with Family * ADLs Independent * Equipment Bedside Commode Cane CPAP Rolling Walker * List name and contact numbers for known caregivers / representatives who currently or will assist patient after discharge: NAEEM () [phone] * Verbal permission to speak to the caregivers and representatives has been obtained from the patient. N/A * Community resources currently utilized None * Additional services required to return to the preadmission environment? Yes * Can the patient safely return to the preadmission environment? No * Has this patient been hospitalized within the prior 30 days at any hospital? No Coverage Notice Reviewer: [id number] Thuan Arriaza Notice Issued Date-Time: 02/08/2019 15:00 Notice Type: IM Discharge Notice Notice Delivered To: Patient Relationship to Patient: Grinder [employer] Name: Delivery Method: HAND - Hand Delivered Briana Days: Prior Verbal Notification: Recipient Understood Notice: Yes Recipient Signature: Yes Med Rec Note Co-signed by Attending: Coverage Notice Comment: Reviewer: [id number] Thuan Arriaza Notice Issued Date-Time: 02/08/2019 15:00 Notice Type: Patient Choice Letter Notice Delivered To: Patient Relationship to Patient: Grinder Watch [employer] Name: Delivery Method: HAND - Hand Delivered Briana Days: Prior Verbal Notification: Recipient Understood Notice: Yes Recipient Signature: Yes Med Rec Note Co-signed by Attending: Coverage Notice Comment: Reviewer: [id number] Renee Notice Issued Date-Time: 02/10/2019 9:07 Notice Type: Patient Choice Letter Notice Delivered To: Patient Relationship to Patient: Self [employer] Name: Delivery Method: PHONE - Phone Briana Days: Prior Verbal Notification: Recipient Understood Notice: Yes Recipient Signature: Med Rec Note Co-signed by Attending: Coverage Notice Comment: CATHY LAZAR. Last DP export: 02/10/19 8:18 am Patient Name: AKSHAT MARIN Page [phone] at 1258 All edits/amendments must be made on the electronic document DICTATION DATE: 02/12/19 1258 KNOTTING MACHINE OPERATOR PORTABLE: MANJU 02/12/19 1258 RPT#: [id number] DC DATE:02/10/19 STATUS: DIS IN [facility] [address] [place] [address] END OF REPORT
== END 2019-02-10 13:30 | disposition home health service (06) | DRG 470 ==
LOC: D.SDCHOLD 02-05 06:50 → D.MS 02-05 06:50 → D.SDCHOLD 02-05 09:00 → D.MS 02-05 13:23
PROVIDERS: Internal Medicine Nephrology; ADMIT Orthopaedic Surgery; ATTEND Orthopaedic Surgery
PROC: 0SRD0J9 Replacement of Left Knee Joint with Synthetic Substitute, Cemented, Open Approach (ICD-10-PCS; principal; 2019-02-05 09:00)
DX: M17.12 Unilateral primary osteoarthritis, left knee (principal); D62 Acute posthemorrhagic anemia; I25.10 Atherosclerotic heart disease of native coronary artery without angina pectoris; I10 Essential (primary) hypertension; G47.33 Obstructive sleep apnea (adult) (pediatric); F41.8 Other specified anxiety disorders; D72.829 Elevated white blood cell count, unspecified

== ENCOUNTER 2019-11-15 19:00 | Outpatient (CLI) | payer MEDICARE, BC ==
[2019-02-08 09:42] VITALS: BMI 26.6
[~2019-11-15 19:00] MED LIST changes: +CIPRO500 MG PO; +ELIQUIS2.5 MG PO; +MULTI-DAY VITAM1 TAB PO; +NIACIN500 MG PO; +OMEGA-3100 MG PO; +OXYCODONE HCL5 M1 PO; +VITAMIN D5000 UNIT PO
== END 2019-11-15 23:59 | disposition home or self-care (01) ==
LOC: D.MAMMO 19:00
PROVIDERS: ATTEND Family Medicine
DX: N64.4 Mastodynia (principal)

== ENCOUNTER → 2019-12-26 08:25 | Outpatient (CLI) | payer MEDICARE, BC ==
[2019-02-08 09:42] VITALS: BMI 26.6
== END | disposition home or self-care (01) ==
LOC: D.RAD 12-23 09:30
PROVIDERS: ATTEND Family Medicine
DX: R13.19 Other dysphagia (principal)